=== PATIENT | male | born 1945 | race Caucasian/White ===

== ENCOUNTER 2021-03-13 20:16 | Outpatient (CLI) | payer MEDICARE, BC | END 2021-03-13 20:17 | disposition home or self-care (01) | LOC: COV 20:16 | PROVIDERS: ATTEND Ophthalmology | DX: Z01.812 Encounter for preprocedural laboratory examination (principal); Z20.822 Contact with and (suspected) exposure to COVID-19 ==

== ENCOUNTER 2024-03-27 14:32 | Outpatient (CLI) | payer MEDICARE, BC | END 2024-03-27 14:33 | disposition home or self-care (01) | LOC: LAB.S 14:32 | PROVIDERS: ATTEND Nurse Practitioner | DX: M54.2 Cervicalgia (principal) | CPT/HCPCS: 87070 ==

== ENCOUNTER 2024-04-08 12:21 | Outpatient (CLI) | payer MEDICARE, BC ==
[2024-04-08] MEDS ORDERED: iohexoL-300 100 ML VIAL ONE (12:34)
[2024-04-08 13:05] LABS: CREATININE 1.8 mg/dL (0.6-1.3)
[2024-04-08] MEDS: iohexoL-300 100 ML VIAL IVP ONE (14:19)
--- NOTE | 2024-04-08 14:35 | CT Report ---
PROCEDURE: Soft Tissue Neck W INDICATIONS: NECK PAIN, CONTRAST: Omni 300 100ml TECHNIQUE: After the administration of intravenous contrast, 3.0 mm axial sections acquired from the sella to th e aortic arch. Additional oblique axial 3.0 mm sections acquired through the pharynx. 3 mm thick co amy reformats were generated. For radiation dose reduction, the following was used: automated exp osure control, adjustment of mA and/or kV according to patient size. COMPARISON: None. FINDINGS: Image quality: Excellent. Lymph nodes: No enlarged lymph nodes seen throughout the neck. Vessels: Visualized vasculature appears patent. Dilated main pulmonary artery measuring 3.5 cm, sug gestive of pulmonary hypertension. Vascular vascular calcifications are present. Neck spaces: The oropharynx, nasopharynx, and pharynx demonstrate no mucosal lesions. The vocal cor ds, false vocal cords, pyriform sinuses, epiglottis, vallecula, and tongue base all appear normal. E xtramucosal spaces appear unremarkable. Glands: The parotid and submandibular glands appear normal. Right posterior and inferior thyroid lo be heterogeneous nodule extending into the mediastinum measuring 3.3 x 3.0 cm. Miscellaneous: Visualized brain and orbits appear normal. Bilateral lens replacements. Right upper lobe subpleural nodule measuring 5 mm (2/). Superficial soft tissues appear normal. Bones: No suspicious bony lesions. Severe degenerative changes of the spine. Postsurgical changes fr om C4 corpectomy and C3-C5 ACDF. Grade I anterolisthesis of C5 on C6. Visualized sinuses and mastoids appear unremarkable. IMPRESSION: 1.Right thyroid lobe nodule measuring 3.3 cm which extends into the mediastinum. Recommend dedicated thyroid ultrasound for further evaluation. 2.Dilated main pulmonary artery, suggestive of pulmonary hypertension. 3.Severe degenerative changes of the cervical spine with postsurgical changes as above. 4.Right upper lobe subpleural nodule measuring 5 mm, likely intrapulmonary lymph node. Follow-up ches t CT can be obtained. Reviewed by: Adama Kennedy MD on 04/08/2024 2:34 PM PDT Approved by: Adama Kennedy MD on 04/08/2024 2:34 PM PDT Station ID: [id number]
== END 2024-04-08 12:22 | disposition home or self-care (01) ==
LOC: LAB 12:21
PROVIDERS: ATTEND Nurse Practitioner
DX: E04.1 Nontoxic single thyroid nodule (principal); I28.1 Aneurysm of pulmonary artery; M47.812 Spondylosis without myelopathy or radiculopathy, cervical region; M43.12 Spondylolisthesis, cervical region; R91.1 Solitary pulmonary nodule; Z98.1 Arthrodesis status
CPT/HCPCS: 36415; 70491; 82565; Q9967

== ENCOUNTER 2024-04-24 07:43 | Outpatient (CLI) | payer MEDICARE, BC ==
--- NOTE | 2024-04-24 08:30 | CT Report ---
PROCEDURE: Chest WO INDICATIONS: LUNG NODULE, THYROID NODULE, DIFFICULTY SWALLOWING TECHNIQUE: A CT scan of the chest was performed. Intravenous contrast media was not administered. Images were re corded and evaluated at appropriate window settings. Reformats: axial MIP of the chest, coronal and s agittal. For radiation dose reduction, the following was used: automated exposure control, adjustment of mA and/or kV according to patient size. COMPARISON: CTA neck with contrast dated 04/08/2024. FINDINGS: Image quality: Diagnostic. Chest wall and lower neck: Right thyroid substernal inferior nodule measuring 3.3 cm. No axillary or supraclavicular adenopathy by size. Lungs and pleura: No consolidation. No pleural effusions. No pneumothorax. The nodular density seen on the previous CT is a some solid pulmonary nodule in the subpleural location on image 33 and 34 of series 117, measuring 5 mm. There is also a 3 mm pleural-based pulmonary nodule in the right upper lo be on image 43/4. No other pulmonary nodules. Mediastinum: Heart size is normal. Severe triple-vessel coronary artery calcifications. No pericardia l effusion. Upper limits of normal ascending aorta measuring 4.0 cm.. No mediastinal adenopathy by si ze criteria. Bones: No aggressive osseous abnormality. Thoracic degenerative change. Mild increase in thoracic kyp hosis secondary to mild anterior vertebral body height loss of contiguous vertebral bodies. Upper Abdomen: Unremarkable. IMPRESSION: 1. 3.3 cm substernal right thyroid nodule. It is noted that the patient is undergoing a thyroid ultra sound. 2. Small pulmonary nodular densities are likely benign. These include a 5 mm some solid pulmonary nod ule and a 3 mm pleural-based pulmonary nodule. 3. Severe triple-vessel coronary artery calcifications. Consider one-year CT follow-up of the pulmonary nodules. Reviewed by: Ray Pablo MD on 04/24/2024 8:29 AM PDT Approved by: Ray Pablo MD on 04/24/2024 8:29 AM PDT Station ID: [id number]
--- NOTE | 2024-04-24 12:49 | Ultrasound Report ---
PROCEDURE: Soft Tissue Head or Neck INDICATIONS: LUNG NODULE, THYROID NODULE, DIFFICULTY SWALLOWING TECHNIQUE: Real-time scanning was performed of the thyroid gland, with image documentation. COMPARISON: CT 04/08/2024 FINDINGS: Right: Thyroid lobe measures 7.0 x 2.0 x 2.6 cm. Left: Thyroid lobe measures 3.1 x 1.5 x 1.5 cm Isthmus: 0.5 cm thick. Echotexture: Homogeneous. Nodule number: One Location: Right inferior Size: 2.8 x 2.7 x 2.4 cm. Composition: Solid (2 points). Echogenicity: Hypoechoic (2 points). Shape: wider than tall (0 points). Margins: Smooth (0 points). Echogenic foci: Macrocalcification (1 point). Total points: 5 ACR TI-RADS category: TI-RADS 4: Moderately suspicious. IMPRESSION: Moderately suspicious right inferior thyroid nodule extending into the mediastinum. Whil e this qualifies for fine-needle aspiration, given position of the lesion in the mediastinum, this ma y not be amenable to ultrasound-guided sampling. ACR TI-RADS definitions and recommendations: TI-RADS 1 (benign): 0 points. FNA not needed. TI-RADS 2 (not suspicious): 2 points. FNA not needed. TI-RADS 3 (mildly suspicious): 3 points. "FNA if 2.5 cm or larger, follow up if 1.5 cm or larger (at 1, 3, and 5 years). TI-RADS 4 (moderately suspicious): 4-6 points. "FNA if 1.5 cm or larger, follow up if 1 cm or larger (at 1, 2, 3, and 5 years). TI-RADS 5 (highly suspicious): 7 points or more. "FNA if 1 cm or larger, follow up if 0.5 cm or larger (every year for 5 years). Reviewed by: Adama Kennedy MD on 04/24/2024 12:48 PM PDT Approved by: Adama Kennedy MD on 04/24/2024 12:48 PM PDT Station ID: [id number]
== END 2024-04-24 07:44 | disposition home or self-care (01) ==
LOC: DI 07:43
PROVIDERS: ATTEND Nurse Practitioner Family
DX: R91.8 Other nonspecific abnormal finding of lung field (principal); E04.1 Nontoxic single thyroid nodule; I25.10 Atherosclerotic heart disease of native coronary artery without angina pectoris

== ENCOUNTER 2024-04-30 10:36 | Outpatient (CLI) | payer MEDICARE, BC ==
[2024-04-30 10:48] LABS: BASOPHILS # (AUTO) 0.1 10^3/uL (0.0-0.1); BASOPHILS % (AUTO) 1.3 %; EOSINOPHILS # (AUTO) 0.2 10^3/uL (0.0-0.7); HCT - HEMATOCRIT 35.5 % (42.0-52.0); LYMPHOCYTES # (AUTO) 1.4 10^3/uL (1.5-3.5); LYMPHOCYTES % (AUTO) 22.4 %; MEAN CORPUSCULAR HEMOGLOBIN 30.2 pg (27.0-31.0); MEAN CORPUSCULAR HGB CONC 33.8 g/dL (32.0-36.0); MEAN CORPUSCULAR VOLUME 89.4 fL (80.0-94.0); MEAN PLATELET VOLUME 8.8 fL (7.4-11.4); MONOCYTES # (AUTO) 0.5 10^3/uL (0.0-1.0); MONOCYTES % (AUTO) 8.2 %; NEUTROPHILS # (AUTO) 4.1 10^3/uL (1.5-6.6); NEUTROPHILS % (AUTO) 64.8 %; PLT - PLATELET COUNT 145 10^3/uL (130-450); RED BLOOD COUNT 3.97 10^6/uL (4.70-6.10); RED CELL DISTRIBUTION WIDTH 11.9 % (12.0-15.0); WHITE BLOOD COUNT 6.3 x10^3/uL (4.8-10.8)
[2024-04-30 11:05] LABS: ALBUMIN 4.5 g/dL (3.2-5.5); ALBUMIN/GLOBULIN RATIO 1.6 (1.0-2.2); ALKALINE PHOSPHATASE 75 IU/L (42-121); ALT ALANINE AMINOTRANSFERASE 13 IU/L (10-60); AST ASPARTATE AMINOTRANSFERASE 17 IU/L (10-42); BILIRUBIN,TOTAL 0.6 mg/dL (0.2-1.0); BUN - BLOOD UREA NITROGEN 33 mg/dL (6-20); CALCIUM 10.2 mg/dL (8.5-10.3); CARBON DIOXIDE - CO2 25 mmol/L (21-32); CHLORIDE 103 mmol/L (101-111); CHOLESTEROL 207 mg/dL; CREATININE 1.8 mg/dL (0.6-1.3); GFR - MDRD 37 (>89); GLUCOSE 97 mg/dL (74-104); HDL CHOLESTEROL 69 mg/dL; LDL CHOLESTEROL,CALCULATED 116 mg/dL; LDL/HDL RATIO 1.7 (<3.6); POTASSIUM 5.1 mmol/L (3.5-4.5); SODIUM 135 mmol/L (135-145); TOTAL PROTEIN 7.4 g/dL (6.4-8.9); TRIGLYCERIDES 110 mg/dL (48-352); VLDL CHOLESTEROL 22 mg/dL
== END 2024-04-30 10:37 | disposition home or self-care (01) ==
LOC: LAB 10:36
PROVIDERS: ATTEND Nurse Practitioner Family
DX: N18.32 Chronic kidney disease, stage 3b (principal); R13.10 Dysphagia, unspecified; I28.1 Aneurysm of pulmonary artery; Z12.5 Encounter for screening for malignant neoplasm of prostate; E04.1 Nontoxic single thyroid nodule; R91.1 Solitary pulmonary nodule
CPT/HCPCS: 36415; 80053; 80061; 84443; 85025; G0103; 83721; 84153

== ENCOUNTER 2024-05-01 12:11 | Outpatient (CLI) | payer MEDICARE, BC ==
[2024-05-01 12:31] LABS: BASOPHILS # (AUTO) 0.1 10^3/uL (0.0-0.1); BASOPHILS % (AUTO) 0.8 %; EOSINOPHILS # (AUTO) 0.2 10^3/uL (0.0-0.7); EOSINOPHILS % (AUTO) 2.8 %; HCT - HEMATOCRIT 33.2 % (42.0-52.0); HGB - HEMOGLOBIN 11.5 g/dL (14.0-18.0); LYMPHOCYTES # (AUTO) 1.6 10^3/uL (1.5-3.5); LYMPHOCYTES % (AUTO) 22.3 %; MEAN CORPUSCULAR HEMOGLOBIN 30.7 pg (27.0-31.0); MEAN CORPUSCULAR HGB CONC 34.6 g/dL (32.0-36.0); MEAN CORPUSCULAR VOLUME 88.5 fL (80.0-94.0); MEAN PLATELET VOLUME 8.9 fL (7.4-11.4); MONOCYTES # (AUTO) 0.6 10^3/uL (0.0-1.0); MONOCYTES % (AUTO) 8.5 %; NEUTROPHILS # (AUTO) 4.7 10^3/uL (1.5-6.6); NEUTROPHILS % (AUTO) 65.3 %; PLT - PLATELET COUNT 145 10^3/uL (130-450); RED BLOOD COUNT 3.75 10^6/uL (4.70-6.10); RED CELL DISTRIBUTION WIDTH 11.8 % (12.0-15.0); WHITE BLOOD COUNT 7.2 x10^3/uL (4.8-10.8)
[2024-05-01 12:50] LABS: % IRON SATURATION 34 % (20-50); IRON 110 ug/dL (50-212); TOTAL IRON BINDING CAPACITY 328 ug/dL (250-450); TRANSFERRIN 234 mg/dL (203-362)
[2024-05-01 13:09] LABS: FERRITIN 40.2 ng/mL (23.9-336.2)
== END 2024-05-01 12:12 | disposition home or self-care (01) ==
LOC: LAB 12:11
PROVIDERS: ATTEND Nurse Practitioner Family
DX: D64.9 Anemia, unspecified (principal)
CPT/HCPCS: 36415; 82607; 82728; 82746; 83540; 84466; 85025

== ENCOUNTER 2024-05-16 07:16 | Outpatient (CLI) | payer MEDICARE, BC ==
--- NOTE | 2024-05-17 17:30 | Ultrasound Report ---
PROCEDURE: Renal (Retroperitoneal) INDICATIONS: ELEVATED PSA, ANEMIA TECHNIQUE: Real-time scanning was performed of the retroperitoneal organs, with image documentation. COMPARISON: Renal ultrasound on September 23, 2013. FINDINGS: Kidneys: Kidneys are normal in size. Right kidney measures 8.7 cm long; left kidney measures 9.8 cm long. Right renal cortical thickness is 0.8 cm; left renal cortical thickness is 0.7 cm. No solid masses, hydronephrosis, or nephrolithiasis. Multiple bilateral anechoic simple cysts, the largest of which on the right measures 2.9 x 2.8 x 2.6 cm in the upper pole and the largest which on the left m easures 2.5 x 2.7 x 2.8 cm in the left upper pole. Bladder: Pre-void bladder volume is 110.5 mL. Post-void residual is 36.2 mL. Pre-void images demon strate no intraluminal masses or stones. On pre-void images, bilateral ureteral jets are noted with color Doppler interrogation. (Of note, ureteral jets may not be detectable in up to 25% of cases due to insufficient differences in specific gravity between ureteral and bladder urine). Miscellaneous: No free abdominal fluid. Prostate is enlarged measuring 5.9 x 5 x 5.6 cm, previously 4.4 x 5.1 x 5.3. Nonspecific anechoic cystic region posterior to the prostate measuring 1.5 cm, prev iously 2.2 cm. IMPRESSION: 1.No hydronephrosis or nephrolithiasis bilaterally. Bilateral cortical thinning which may be secondar y to medical renal disease. 2.Prostate has mildly increased in size compared to prior dated September 23, 2013. 3.Post void residual is 36 mL. 4.Anechoic simple cyst adjacent to the prostate has slightly decreased in size. Reviewed by: Brett Platt MD on 05/17/2024 5:29 PM PDT Approved by: Brett Platt MD on 05/17/2024 5:29 PM PDT Station ID: [id number]
== END 2024-05-16 07:17 | disposition home or self-care (01) ==
LOC: DI 07:16
PROVIDERS: ATTEND Nurse Practitioner Family
DX: N40.0 Benign prostatic hyperplasia without lower urinary tract symptoms (principal); D64.9 Anemia, unspecified

== ENCOUNTER 2024-06-15 08:48 | Outpatient (CLI) | payer MEDICARE, BC ==
[~2024-06-15 08:48] MED LIST: GADOTERATE MEGLUMINE 10 MMOL/20 ML VIAL ONE
[2024-06-15 09:15] LABS: CREATININE 1.9 mg/dL (0.6-1.3)
--- NOTE | 2024-06-15 12:52 | MRI Report ---
PROCEDURE: Pelvis W/WO INDICATIONS: ELEVATED PSA CONTRAST: Clarisacan 15.6ml TECHNIQUE: Coronal ultra fast SE, axial T1 FSE with fat saturation, 3-plane nonbreath-hold T2 FSE. After the ad ministration of contrast, dynamic axial, delayed axial and coronal ultra fast GE or 2-D spoiled GE wi th fat saturation through the pelvis. Optional diffusion weighted imaging and ADC may be performed. COMPARISON: None. FINDINGS: Image quality: Diffusion weighted and dynamic contrast enhanced images are diagnostic. Prostate: Gland size is 5.2 x 5.0 x 5.0 cm; ellipsoid gland volume is 68 mL. PSA Density: 0.117. Mil d prostate hypertrophy of the transition zone, with encapsulated and partially encapsulated nodules. No PI-RADS 3-5 lesions. T1 hyperintense products within the left seminal vesicle. Genitourinary system: Bladder wall thickness is normal. Distal ureters are non distended. Bowel and peritoneum: No pathologic free pelvic fluid. Inferior colon and small bowel loops are nor mal in caliber. Nodes and vessels: No pelvic or inguinal adenopathy by size criteria. Iliac vessels are normal in c aliber. Soft tissues: Moderate bilateral inguinal hernias containing fat. Bones: Bone marrow demonstrates normal overall signal. No suspicious bony lesions. Right total hip a rthroplasty IMPRESSION: No PI-RADS 3-5 lesions. No aggressive osseous abnormality. No pelvic adenopathy by size criteria. T1 hyperintense signal within the left seminal vesicle, probably hemorrhagic products. Reviewed by: Ibrahima Guy MD on 06/15/2024 12:51 PM PDT Approved by: Ibrahima Guy MD on 06/15/2024 12:51 PM PDT Station ID: [id number]
[2024-06-15] MEDS: GADOTERATE MEGLUMINE 10 MMOL/20 ML VIAL IVP ONE (15:25)
== END 2024-06-15 08:49 | disposition home or self-care (01) ==
LOC: LAB 08:48
PROVIDERS: ATTEND Urology
DX: R97.20 Elevated prostate specific antigen [PSA] (principal)
CPT/HCPCS: 36415; 72197; 82565; A9575

== ENCOUNTER 2024-08-03 09:44 | Outpatient (CLI) | payer MEDICARE, BC ==
[2024-08-03 09:57] LABS: BASOPHILS # (AUTO) 0.1 10^3/uL (0.0-0.1); BASOPHILS % (AUTO) 0.7 %; EOSINOPHILS # (AUTO) 0.2 10^3/uL (0.0-0.7); EOSINOPHILS % (AUTO) 3.3 %; HCT - HEMATOCRIT 37.6 % (42.0-52.0); HGB - HEMOGLOBIN 12.7 g/dL (14.0-18.0); LYMPHOCYTES # (AUTO) 1.5 10^3/uL (1.5-3.5); LYMPHOCYTES % (AUTO) 22.8 %; MEAN CORPUSCULAR HEMOGLOBIN 30.3 pg (27.0-31.0); MEAN CORPUSCULAR HGB CONC 33.8 g/dL (32.0-36.0); MEAN CORPUSCULAR VOLUME 89.7 fL (80.0-94.0); MEAN PLATELET VOLUME 8.9 fL (7.4-11.4); MONOCYTES # (AUTO) 0.5 10^3/uL (0.0-1.0); NEUTROPHILS # (AUTO) 4.4 10^3/uL (1.5-6.6); NEUTROPHILS % (AUTO) 64.9 %; PLT - PLATELET COUNT 142 10^3/uL (130-450); RED BLOOD COUNT 4.19 10^6/uL (4.70-6.10); RED CELL DISTRIBUTION WIDTH 11.6 % (12.0-15.0); WHITE BLOOD COUNT 6.8 x10^3/uL (4.8-10.8)
[2024-08-03 10:16] LABS: ALBUMIN 4.3 g/dL (3.2-5.5); ALBUMIN/GLOBULIN RATIO 1.7 (1.0-2.2); ALKALINE PHOSPHATASE 69 IU/L (42-121); ALT ALANINE AMINOTRANSFERASE 13 IU/L (10-60); AST ASPARTATE AMINOTRANSFERASE 15 IU/L (10-42); BILIRUBIN,TOTAL 0.7 mg/dL (0.2-1.0); BUN - BLOOD UREA NITROGEN 27 mg/dL (6-20); CALCIUM 9.7 mg/dL (8.5-10.3); CARBON DIOXIDE - CO2 27 mmol/L (21-32); CHLORIDE 104 mmol/L (101-111); CHOL/HDL RATIO 2.7 (<5.0); CHOLESTEROL 164 mg/dL; CREATININE 1.7 mg/dL (0.6-1.3); GFR - MDRD 39 (>89); GLUCOSE 88 mg/dL (74-104); HDL CHOLESTEROL 61 mg/dL; LDL CHOLESTEROL,CALCULATED 82 mg/dL; LDL/HDL RATIO 1.3 (<3.6); SODIUM 136 mmol/L (135-145); TOTAL PROTEIN 6.8 g/dL (6.4-8.9); TRIGLYCERIDES 105 mg/dL; VLDL CHOLESTEROL 21 mg/dL
== END 2024-08-03 09:45 | disposition home or self-care (01) ==
LOC: LAB 09:44
PROVIDERS: ATTEND Nurse Practitioner Family
DX: E87.5 Hyperkalemia (principal); E78.5 Hyperlipidemia, unspecified; D64.9 Anemia, unspecified
CPT/HCPCS: 36415; 80053; 80061; 83721; 85025